=== PATIENT | male | born 1970 | race Asian ===

== ENCOUNTER 2016-07-31 08:22 | Outpatient (CLI) | payer BC ==
[~2016-07-31 08:22] MED LIST: ALLO100T PO; AMLO5TAB2 PO; ATOR10TA PO; GABA-532 PO; GLIM2TAB2 PO; LOSA50TA21 PO; METF500T4 PO
== END 2016-07-31 23:59 | disposition home or self-care (01) ==
LOC: RAD 08:22
PROVIDERS: ATTEND Family Medicine
DX: M25.541 Pain in joints of right hand (principal); M25.542 Pain in joints of left hand
CPT/HCPCS: 73130-TC

== ENCOUNTER 2016-08-15 06:33 | Outpatient (CLI) | payer BC ==
[2016-08-15 07:43] LABS: BASOPHILS # (AUTO) 0.1 /CMM (0.0-0.2); BASOPHILS % (AUTO) 0.6 % (0.0-2.0); EOSINOPHILS # (AUTO) 0.5 /CMM (0.0-0.7); EOSINOPHILS % (AUTO) 3.7 % (0.0-6.0); HEMATOCRIT 41 % (39-51); HEMOGLOBIN 13.6 g/dL (13.5-17.5); LYMPHOCYTES # (AUTO) 4.3 /CMM (0.8-4.8); LYMPHOCYTES % (AUTO) 34.9 % (20.0-44.0); MEAN CORPUSCULAR HEMOGLOBIN 30 PG (26.0-33.0); MEAN CORPUSCULAR HGB CONC 33 g/dl (31.0-36.0); MEAN CORPUSCULAR VOLUME 91 fL (80-96); MONOCYTES # (AUTO) 0.7 /CMM (0.1-1.30); MONOCYTES % (AUTO) 5.5 % (2.0-12.0); NEUTROPHILS # (AUTO) 6.8 /CMM (1.8-8.9); NEUTROPHILS % (AUTO) 55.3 % (43.0-81.0); PLATELET COUNT (AUTO) 376 /CMM (150-450); RDW COEFFICIENT OF VARIATION 13.4 (11.5-15.0); RED BLOOD CELL COUNT(AUTO) 4.52 MIL/uL (4.5-6.0); WHITE BLOOD COUNT (AUTO) 12.3 K/uL (4.3-11.0)
[2016-08-15 07:53] LABS: APPEARANCE,URINE CLEAR (CLEAR); BILIRUBIN,URINE NEGATIVE (NEGATIVE); BLOOD, URINE NEGATIVE Ery/uL (NEGATIVE); COLOR,URINE YELLOW (YELLOW); KETONES,URINE NEGATIVE (NEGATIVE); LEUKOCYTE ESTERASE ,URINE NEGATIVE (NEGATIVE); NITRITE, URINE NEGATIVE (NEGATIVE); PROTEIN,URINE TRACE mg/dl (NEGATIVE); UGLUCOSE NEGATIVE (NEGATIVE); UROBILINOGEN,URINE 0.2 EU/dL (0.2)
[2016-08-15 07:58] LABS: ALBUMIN 4.2 g/dL (3.4-5.0); BILIRUBIN,TOTAL 0.4 mg/dL (0.2-1.0); CALCIUM, SERUM 8.7 mg/dL (8.5-10.1); CREATININE 1.7 mg/dL (0.6-1.3); POTASSIUM 4.3 mmol/L (3.5-5.1); TOTAL PROTEIN, SERUM 7.9 g/dL (6.4-8.2)
[2016-08-15 08:05] LABS: THYROID STIMULATING HORMONE 1.015 uIU/mL (0.358-3.74); URIC ACID 6.6 mg/dL (2.6-7.2)
[2016-08-15 09:15] LABS: ADD URINE CULTURE NO; BACTERIA,URINE None seen /HPF (None Seen); RBC,URINE NONE SEEN /HPF (0-2); SQUAMOUS EPITHELIAL CELL,UR Few /HPF (None Seen); WBC,URINE 0-2 /HPF (0-3)
[2016-08-16 08:09] LABS: T3 TOTAL 152 ng/dL (71-180)
[2016-08-16 20:08] LABS: *ANA ANTI-CENTROMERE B AB <0.2 AI (0.0-0.9); *ANA ANTI-DNA(DS) AB, QN 1 IU/mL (0-9); *ANA ANTI-JO-1 <0.2 AI (0.0-0.9); *ANA ANTICHROMATIN ANTIBODY <0.2 AI (0.0-0.9); *ANA RNP ANTIBODIES <0.2 AI (0.0-0.9); *ANA SJOGREN'S ANTI-SS-A <0.2 AI (0.0-0.9); *ANA SJOGREN'S ANTI-SS-B <0.2 AI (0.0-0.9); *ANAANTI-SCLERODERMA-70 AB <0.2 AI (0.0-0.9); *ANASMITH AB <0.2 AI (0.0-0.9)
== END 2016-08-15 23:59 | disposition home or self-care (01) ==
LOC: LAB 06:33
PROVIDERS: ATTEND Family Medicine
DX: E11.9 Type 2 diabetes mellitus without complications (principal); M25.549 Pain in joints of unspecified hand
CPT/HCPCS: 36415; 80053-TC; 80061-TC; 81000-TC; 84439-TC; 84443-TC; 84480; 84550-TC; 85025-TC; 86225; 86235; 86431-TC

== ENCOUNTER 2016-12-18 06:32 | Outpatient (CLI) | payer BC ==
[2016-12-19 04:08] LABS: BASOPHILS # (AUTO) 0.1 /CMM (0.0-0.2); EOSINOPHILS # (AUTO) 0.4 /CMM (0.0-0.7); EOSINOPHILS % (AUTO) 3.7 % (0.0-6.0); HEMATOCRIT 42 % (39-51); HEMOGLOBIN 13.9 g/dL (13.5-17.5); LYMPHOCYTES # (AUTO) 3.1 /CMM (0.8-4.8); LYMPHOCYTES % (AUTO) 30.5 % (20.0-44.0); MEAN CORPUSCULAR HEMOGLOBIN 30 PG (26.0-33.0); MEAN CORPUSCULAR HGB CONC 34 g/dl (31.0-36.0); MEAN CORPUSCULAR VOLUME 91 fL (80-96); MONOCYTES # (AUTO) 0.5 /CMM (0.1-1.30); MONOCYTES % (AUTO) 5.2 % (2.0-12.0); NEUTROPHILS # (AUTO) 6.1 /CMM (1.8-8.9); NEUTROPHILS % (AUTO) 59.6 % (43.0-81.0); PLATELET COUNT (AUTO) 360 /CMM (150-450); RDW COEFFICIENT OF VARIATION 13.3 (11.5-15.0); RED BLOOD CELL COUNT(AUTO) 4.59 MIL/uL (4.5-6.0); WHITE BLOOD COUNT (AUTO) 10.3 K/uL (4.3-11.0)
[2016-12-19 04:35] LABS: ALBUMIN 4.2 g/dL (3.4-5.0); BILIRUBIN,TOTAL 0.3 mg/dL (0.2-1.0); CALCIUM, SERUM 8.9 mg/dL (8.5-10.1); CREATININE 1.8 mg/dL (0.6-1.3); POTASSIUM 4.9 mmol/L (3.5-5.1); TOTAL PROTEIN, SERUM 8.1 g/dL (6.4-8.2)
[2016-12-19 04:43] LABS: THYROID STIMULATING HORMONE 0.797 uIU/mL (0.358-3.74)
[2016-12-20 08:11] LABS: T3, FREE 3.6 pg/mL (2.0-4.4)
== END 2016-12-18 23:59 | disposition home or self-care (01) ==
LOC: LAB 06:32
PROVIDERS: ATTEND Family Medicine
DX: E11.21 Type 2 diabetes mellitus with diabetic nephropathy (principal); E55.9 Vitamin D deficiency, unspecified; M79.643 Pain in unspecified hand
CPT/HCPCS: 36415; 80053-TC; 80061-TC; 82306; 83540-TC; 84436-TC; 84439-TC; 84443-TC; 84481; 85025-TC; 86431-TC

== ENCOUNTER 2017-01-29 08:21 | Outpatient (CLI) | payer BC | END 2017-01-29 23:59 | disposition home or self-care (01) | LOC: CT 08:21 | PROVIDERS: ATTEND Family Medicine | DX: C64.9 Malignant neoplasm of unspecified kidney, except renal pelvis (principal); K80.20 Calculus of gallbladder without cholecystitis without obstruction; R16.0 Hepatomegaly, not elsewhere classified; I70.0 Atherosclerosis of aorta; Z90.5 Acquired absence of kidney | CPT/HCPCS: 71250-TC ==

== ENCOUNTER 2017-02-05 06:35 | Outpatient (CLI) | payer BC ==
[2017-02-06 02:04] LABS: BASOPHILS # (AUTO) 0.1 /CMM (0.0-0.2); BASOPHILS % (AUTO) 1.1 % (0.0-2.0); EOSINOPHILS # (AUTO) 0.4 /CMM (0.0-0.7); EOSINOPHILS % (AUTO) 4.1 % (0.0-6.0); HEMATOCRIT 39 % (39-51); LYMPHOCYTES # (AUTO) 3.2 /CMM (0.8-4.8); LYMPHOCYTES % (AUTO) 35.2 % (20.0-44.0); MEAN CORPUSCULAR HEMOGLOBIN 30 PG (26.0-33.0); MEAN CORPUSCULAR HGB CONC 34 g/dl (31.0-36.0); MEAN CORPUSCULAR VOLUME 90 fL (80-96); MONOCYTES # (AUTO) 0.7 /CMM (0.1-1.30); MONOCYTES % (AUTO) 7.8 % (2.0-12.0); NEUTROPHILS # (AUTO) 4.7 /CMM (1.8-8.9); NEUTROPHILS % (AUTO) 51.8 % (43.0-81.0); PLATELET COUNT (AUTO) 348 /CMM (150-450); RDW COEFFICIENT OF VARIATION 13.6 (11.5-15.0); RED BLOOD CELL COUNT(AUTO) 4.29 MIL/uL (4.5-6.0); WHITE BLOOD COUNT (AUTO) 9.1 K/uL (4.3-11.0)
[2017-02-06 02:07] LABS: APPEARANCE,URINE CLEAR (CLEAR); BILIRUBIN,URINE NEGATIVE (NEGATIVE); BLOOD, URINE TRACE-INTA Ery/uL (NEGATIVE); KETONES,URINE NEGATIVE (NEGATIVE); LEUKOCYTE ESTERASE ,URINE NEGATIVE (NEGATIVE); NITRITE, URINE NEGATIVE (NEGATIVE); PROTEIN,URINE 2+ mg/dl (NEGATIVE); UGLUCOSE NEGATIVE (NEGATIVE); UROBILINOGEN,URINE 0.2 EU/dL (0.2)
[2017-02-06 02:13] LABS: COLOR,URINE Light yellow (YELLOW); RBC,URINE 0-2 /HPF (0-2); WBC,URINE NONE SEEN /HPF (0-3)
[2017-02-06 02:14] LABS: BACTERIA,URINE None seen /HPF (None Seen); SQUAMOUS EPITHELIAL CELL,UR Rare /HPF (None Seen)
[2017-02-06 02:17] LABS: ALBUMIN 3.8 g/dL (3.4-5.0); BILIRUBIN,TOTAL 0.3 mg/dL (0.2-1.0); CREATININE 1.8 mg/dL (0.6-1.3); POTASSIUM 4.3 mmol/L (3.5-5.1); TOTAL PROTEIN, SERUM 7.7 g/dL (6.4-8.2)
== END 2017-02-05 23:59 | disposition home or self-care (01) ==
LOC: LAB 06:35
PROVIDERS: ATTEND Family Medicine
DX: C64.9 Malignant neoplasm of unspecified kidney, except renal pelvis (principal); N35.9 Urethral stricture, unspecified; R82.99 Other abnormal findings in urine
CPT/HCPCS: 36415; 80053-TC; 81000-TC; 85025-TC; 87086-TC

== ENCOUNTER 2017-04-23 07:21 | Outpatient (CLI) | payer BC ==
[2017-04-24 06:31] LABS: BASOPHILS # (AUTO) 0.1 /CMM (0.0-0.2); BASOPHILS % (AUTO) 0.7 % (0.0-2.0); EOSINOPHILS # (AUTO) 0.4 /CMM (0.0-0.7); EOSINOPHILS % (AUTO) 4.1 % (0.0-6.0); HEMATOCRIT 39 % (39-51); LYMPHOCYTES # (AUTO) 2.9 /CMM (0.8-4.8); LYMPHOCYTES % (AUTO) 30.1 % (20.0-44.0); MEAN CORPUSCULAR HEMOGLOBIN 30 PG (26.0-33.0); MEAN CORPUSCULAR HGB CONC 34 g/dl (31.0-36.0); MEAN CORPUSCULAR VOLUME 89 fL (80-96); MONOCYTES # (AUTO) 0.7 /CMM (0.1-1.30); MONOCYTES % (AUTO) 6.8 % (2.0-12.0); NEUTROPHILS # (AUTO) 5.7 /CMM (1.8-8.9); NEUTROPHILS % (AUTO) 58.3 % (43.0-81.0); PLATELET COUNT (AUTO) 408 /CMM (150-450); RDW COEFFICIENT OF VARIATION 13.1 (11.5-15.0); RED BLOOD CELL COUNT(AUTO) 4.31 MIL/uL (4.5-6.0); WHITE BLOOD COUNT (AUTO) 9.7 K/uL (4.3-11.0)
[2017-04-24 06:32] LABS: APPEARANCE,URINE CLEAR (CLEAR); BILIRUBIN,URINE NEGATIVE (NEGATIVE); BLOOD, URINE TRACE Ery/uL (NEGATIVE); COLOR,URINE YELLOW (YELLOW); KETONES,URINE NEGATIVE (NEGATIVE); LEUKOCYTE ESTERASE ,URINE NEGATIVE (NEGATIVE); NITRITE, URINE NEGATIVE (NEGATIVE); PH,URINE 5.5 (5.0-8.0); PROTEIN,URINE 2+ mg/dl (NEGATIVE); UGLUCOSE NEGATIVE (NEGATIVE); UROBILINOGEN,URINE 0.2 EU/dL (0.2)
[2017-04-24 06:43] LABS: BACTERIA,URINE None seen /HPF (None Seen); HYALINE CASTS, URINE Rare /LPF (None Seen); MUCUS,URINE Rare /LPF (None Seen); RBC,URINE 0-2 /HPF (0-2); SQUAMOUS EPITHELIAL CELL,UR Rare /HPF (None Seen); WBC,URINE 0-2 /HPF (0-3)
[2017-04-24 06:50] LABS: ALBUMIN 3.9 g/dL (3.4-5.0); BILIRUBIN,TOTAL 0.4 mg/dL (0.2-1.0); CALCIUM, SERUM 8.9 mg/dL (8.5-10.1); CREATININE 1.8 mg/dL (0.6-1.3); POTASSIUM 4.6 mmol/L (3.5-5.1); TOTAL PROTEIN, SERUM 8.1 g/dL (6.4-8.2)
[2017-04-24 06:59] LABS: FREE T4 (FREE THYROXINE) 0.93 ng/dL (0.76-1.46); PROSTATE SPECIFIC ANTIGEN SCR 1.44 ng/mL (0.00-4.00); THYROID STIMULATING HORMONE 1.719 uIU/mL (0.358-3.74)
== END 2017-04-23 23:59 | disposition home or self-care (01) ==
LOC: LAB 07:21
PROVIDERS: ATTEND Family Medicine
DX: Z11.59 Encounter for screening for other viral diseases (principal); E11.22 Type 2 diabetes mellitus with diabetic chronic kidney disease; N18.9 Chronic kidney disease, unspecified; E55.9 Vitamin D deficiency, unspecified; R31.21 Asymptomatic microscopic hematuria
CPT/HCPCS: 36415; 80053-TC; 80061-TC; 81000-TC; 82306; 84153-TC; 84439-TC; 84443-TC; 85025-TC; 86706; 86709-TC

== ENCOUNTER 2017-05-28 05:57 | Outpatient (CLI) | payer BC | END 2017-05-28 23:59 | disposition home or self-care (01) | LOC: CT 05:57 | PROVIDERS: ATTEND Family Medicine | DX: K80.20 Calculus of gallbladder without cholecystitis without obstruction (principal); K76.0 Fatty (change of) liver, not elsewhere classified; C64.1 Malignant neoplasm of right kidney, except renal pelvis; J98.11 Atelectasis; I70.0 Atherosclerosis of aorta; M47.899 Other spondylosis, site unspecified; Z90.5 Acquired absence of kidney ==

== ENCOUNTER 2017-06-12 06:18 | Outpatient (CLI) | payer BC ==
[2017-06-13 02:49] LABS: BASOPHILS # (AUTO) 0.1 /CMM (0.0-0.2); BASOPHILS % (AUTO) 0.8 % (0.0-2.0); EOSINOPHILS # (AUTO) 0.4 /CMM (0.0-0.7); EOSINOPHILS % (AUTO) 4.3 % (0.0-6.0); HEMATOCRIT 36 % (39-51); HEMOGLOBIN 12.4 g/dL (13.5-17.5); LYMPHOCYTES # (AUTO) 2.8 /CMM (0.8-4.8); LYMPHOCYTES % (AUTO) 28.2 % (20.0-44.0); MEAN CORPUSCULAR HEMOGLOBIN 31 PG (26.0-33.0); MEAN CORPUSCULAR HGB CONC 34 g/dl (31.0-36.0); MEAN CORPUSCULAR VOLUME 90 fL (80-96); MONOCYTES # (AUTO) 0.7 /CMM (0.1-1.30); MONOCYTES % (AUTO) 6.8 % (2.0-12.0); NEUTROPHILS # (AUTO) 5.9 /CMM (1.8-8.9); NEUTROPHILS % (AUTO) 59.9 % (43.0-81.0); PLATELET COUNT (AUTO) 368 /CMM (150-450); RED BLOOD CELL COUNT(AUTO) 4.04 MIL/uL (4.5-6.0); WHITE BLOOD COUNT (AUTO) 9.9 K/uL (4.3-11.0)
[2017-06-13 03:09] LABS: TOTAL IRON BINDING CAPACITY 387 ug/dl (250-450)
[2017-06-13 03:17] LABS: FERRITIN 140 ng/mL (8-388)
== END 2017-06-12 23:59 | disposition home or self-care (01) ==
LOC: LAB 06:18
PROVIDERS: ATTEND Family Medicine
DX: D64.9 Anemia, unspecified (principal)
CPT/HCPCS: 36415; 82272-TC; 82728-TC; 82746; 83550-TC; 85025-TC

== ENCOUNTER 2017-09-03 06:33 | Outpatient (CLI) | payer BC ==
[~2017-09-03 06:33] MED LIST changes: -AMLO5TAB2 PO; +AMLO5TAB7 PO; +METF-440 PO; -METF500T4 PO
[2017-09-03 07:15] LABS: BASOPHILS # (AUTO) 0.1 /CMM (0.0-0.2); BASOPHILS % (AUTO) 0.7 % (0.0-2.0); EOSINOPHILS % (AUTO) 3.5 % (0.0-6.0); HEMATOCRIT 41 % (39-51); HEMOGLOBIN 13.7 g/dL (13.5-17.5); LYMPHOCYTES # (AUTO) 3.2 /CMM (0.8-4.8); LYMPHOCYTES % (AUTO) 28.3 % (20.0-44.0); MEAN CORPUSCULAR HGB CONC 34 g/dl (31.0-36.0); MEAN CORPUSCULAR VOLUME 89 fL (80-96); MONOCYTES # (AUTO) 0.6 /CMM (0.1-1.30); MONOCYTES % (AUTO) 5.5 % (2.0-12.0); PLATELET COUNT (AUTO) 419 /CMM (150-450); RDW COEFFICIENT OF VARIATION 13.6 (11.5-15.0); WHITE BLOOD COUNT (AUTO) 11.3 K/uL (4.3-11.0)
[2017-09-03 07:20] LABS: APPEARANCE,URINE CLEAR (CLEAR); BILIRUBIN,URINE NEGATIVE (NEGATIVE); BLOOD, URINE NEGATIVE Ery/uL (NEGATIVE); COLOR,URINE YELLOW (YELLOW); KETONES,URINE NEGATIVE (NEGATIVE); LEUKOCYTE ESTERASE ,URINE NEGATIVE (NEGATIVE); NITRITE, URINE NEGATIVE (NEGATIVE); PROTEIN,URINE 2+ mg/dl (NEGATIVE); UGLUCOSE NEGATIVE (NEGATIVE); UROBILINOGEN,URINE 0.2 EU/dL (0.2)
[2017-09-03 07:25] LABS: ALBUMIN 3.9 g/dL (3.4-5.0); BILIRUBIN,TOTAL 0.4 mg/dL (0.2-1.0); CALCIUM, SERUM 9.2 mg/dL (8.5-10.1); POTASSIUM 4.4 mmol/L (3.5-5.1); TOTAL PROTEIN, SERUM 8.2 g/dL (6.4-8.2)
[2017-09-03 07:33] LABS: THYROID STIMULATING HORMONE 1.496 uIU/mL (0.358-3.74); URIC ACID 8.1 mg/dL (2.6-7.2)
[2017-09-03 07:43] LABS: BACTERIA,URINE Rare /HPF (None Seen); RBC,URINE 0-2 /HPF (0-2); SQUAMOUS EPITHELIAL CELL,UR Rare /HPF (None Seen); WBC,URINE 0-2 /HPF (0-3)
== END 2017-09-03 23:59 | disposition home or self-care (01) ==
LOC: LAB 06:33
PROVIDERS: ATTEND Family Medicine
DX: E11.9 Type 2 diabetes mellitus without complications (principal); M10.9 Gout, unspecified
CPT/HCPCS: 36415; 80053-TC; 80061-TC; 81000-TC; 84439-TC; 84443-TC; 84550-TC; 85025-TC

== ENCOUNTER 2017-12-24 06:43 | Outpatient (CLI) | payer BC ==
[~2017-12-24 06:43] MED LIST changes: +AMLO5TAB2 PO; -AMLO5TAB7 PO; -METF-440 PO; +METF500T6 PO
[2017-12-25 02:47] LABS: APPEARANCE,URINE CLEAR (CLEAR); BILIRUBIN,URINE NEGATIVE (NEGATIVE); BLOOD, URINE TRACE-INTA Ery/uL (NEGATIVE); COLOR,URINE YELLOW (YELLOW); KETONES,URINE NEGATIVE (NEGATIVE); LEUKOCYTE ESTERASE ,URINE NEGATIVE (NEGATIVE); NITRITE, URINE NEGATIVE (NEGATIVE); PROTEIN,URINE 2+ mg/dl (NEGATIVE); UGLUCOSE NEGATIVE (NEGATIVE); UROBILINOGEN,URINE 0.2 EU/dL (0.2)
[2017-12-25 03:19] LABS: RBC,URINE 0-2 /HPF (0-2); WBC,URINE 0-2 /HPF (0-3)
[2017-12-25 03:20] LABS: BACTERIA,URINE Rare /HPF (None Seen); SQUAMOUS EPITHELIAL CELL,UR Rare /HPF (None Seen)
[2017-12-25 05:45] LABS: ALBUMIN 3.8 g/dL (3.4-5.0); BILIRUBIN,TOTAL 0.3 mg/dL (0.2-1.0); CALCIUM, SERUM 9.1 mg/dL (8.5-10.1); POTASSIUM 4.4 mmol/L (3.5-5.1); TOTAL PROTEIN, SERUM 7.9 g/dL (6.4-8.2)
[2017-12-25 05:49] LABS: BASOPHILS % (AUTO) 0.2 % (0.0-2.0); EOSINOPHILS % (AUTO) 4.7 % (0.0-6.0); HEMATOCRIT 43 % (39-51); HEMOGLOBIN 14.2 g/dL (13.5-17.5); LYMPHOCYTES # (AUTO) 2.3 /CMM (0.8-4.8); MEAN CORPUSCULAR HEMOGLOBIN 30 PG (26.0-33.0); MEAN CORPUSCULAR HGB CONC 34 g/dl (31.0-36.0); MEAN CORPUSCULAR VOLUME 89 fL (80-96); MONOCYTES # (AUTO) 0.7 /CMM (0.1-1.30); MONOCYTES % (AUTO) 7.8 % (2.0-12.0); NEUTROPHILS % (AUTO) 59.3 % (43.0-81.0); PLATELET COUNT (AUTO) 418 /CMM (150-450); RDW COEFFICIENT OF VARIATION 12.5 (11.5-15.0); WHITE BLOOD COUNT (AUTO) 8.4 K/uL (4.3-11.0)
[2017-12-25 05:51] LABS: FREE T4 (FREE THYROXINE) 0.99 ng/dL (0.76-1.46); THYROID STIMULATING HORMONE 2.394 uIU/mL (0.358-3.74); URIC ACID 7.9 mg/dL (2.6-7.2)
== END 2017-12-24 23:59 | disposition home or self-care (01) ==
LOC: LAB 06:43
PROVIDERS: ATTEND Family Medicine
DX: I10 Essential (primary) hypertension (principal); E11.9 Type 2 diabetes mellitus without complications; E55.9 Vitamin D deficiency, unspecified
CPT/HCPCS: 36415; 80053-TC; 80061-TC; 81000-TC; 82306; 84439-TC; 84443-TC; 84550-TC; 85025-TC

== ENCOUNTER 2017-12-25 08:39 | Outpatient (CLI) | payer BC | END 2017-12-25 23:59 | disposition home or self-care (01) | LOC: CT 08:39 | PROVIDERS: ATTEND Family Medicine | DX: C64.1 Malignant neoplasm of right kidney, except renal pelvis (principal); I10 Essential (primary) hypertension; E11.9 Type 2 diabetes mellitus without complications; J45.909 Unspecified asthma, uncomplicated; Z90.5 Acquired absence of kidney | CPT/HCPCS: 71250-TC ==

== ENCOUNTER 2018-01-02 07:48 | Outpatient (CLI) | payer BC | END 2018-01-02 23:59 | disposition home or self-care (01) | LOC: MRI 07:48 | PROVIDERS: ATTEND Family Medicine | DX: M48.07 Spinal stenosis, lumbosacral region (principal); C64.9 Malignant neoplasm of unspecified kidney, except renal pelvis; I10 Essential (primary) hypertension; J45.909 Unspecified asthma, uncomplicated; E11.9 Type 2 diabetes mellitus without complications | CPT/HCPCS: 72148-TC ==

== ENCOUNTER 2018-01-15 20:42 | Emergency (ER) | payer BC, OTHER ==
[~2018-01-15] VITALS: Ht 177.8 cm; Wt 113.4 kg
[~2018-01-15 20:42] MED LIST changes: -AMLO5TAB2 PO; +AMLO5TAB7 PO; +METF-440 PO; -METF500T6 PO
[2018-01-15 20:46] VITALS: BP 156/86
== END 2018-01-15 21:12 | disposition home or self-care (01) ==
LOC: ER 20:46
DX: B34.9 Viral infection, unspecified (principal); I10 Essential (primary) hypertension; E11.9 Type 2 diabetes mellitus without complications; E78.00 Pure hypercholesterolemia, unspecified; Z85.528 Personal history of other malignant neoplasm of kidney; Z91.013 Allergy to seafood; Z90.5 Acquired absence of kidney; Z79.84 Long term (current) use of oral hypoglycemic drugs; Z79.899 Other long term (current) drug therapy
CPT/HCPCS: A4606; Z7610

== ENCOUNTER 2018-10-26 22:45 | Emergency (ER) | payer BC, OTHER ==
[~2018-10-26] VITALS: Ht 180.3 cm; Wt 116.6 kg
[2018-10-26 22:45] VITALS: BP 165/92
[~2018-10-26 22:45] MED LIST changes: -AMLO5TAB7 PO; +AMLO5TAB9 PO; -LOSA50TA21 PO; +LOSA50TA39 PO
[2018-10-26] MEDS ORDERED: ACETAMINOPHEN 325 MG TABLET ONE (23:44)
[2018-10-27] MEDS ORDERED: ACETAMINOPHEN 650 MG/20.3 ML UDC PO ONE
== END 2018-10-27 00:13 | disposition home or self-care (01) ==
LOC: ER 22:47
DX: S20.212A Contusion of left front wall of thorax, initial encounter (principal); I10 Essential (primary) hypertension; E11.9 Type 2 diabetes mellitus without complications; Z98.890 Other specified postprocedural states; Z79.84 Long term (current) use of oral hypoglycemic drugs; Z79.899 Other long term (current) drug therapy; Z91.013 Allergy to seafood; Z85.528 Personal history of other malignant neoplasm of kidney; W01.198A Fall on same level from slipping, tripping and stumbling with subsequent striking against other object, initial encounter; Y93.01 Activity, walking, marching and hiking; Y92.89 Other specified places as the place of occurrence of the external cause; Y99.8 Other external cause status
CPT/HCPCS: 71100-TC

== ENCOUNTER 2018-12-30 08:24 | Outpatient (CLI) | payer BC | END 2018-12-30 23:59 | disposition home or self-care (01) | LOC: CT 08:24 | PROVIDERS: ATTEND Family Medicine | DX: C64.9 Malignant neoplasm of unspecified kidney, except renal pelvis (principal); K76.0 Fatty (change of) liver, not elsewhere classified; K80.20 Calculus of gallbladder without cholecystitis without obstruction; I70.0 Atherosclerosis of aorta; M47.815 Spondylosis without myelopathy or radiculopathy, thoracolumbar region; M95.4 Acquired deformity of chest and rib; I10 Essential (primary) hypertension; E11.9 Type 2 diabetes mellitus without complications; J45.909 Unspecified asthma, uncomplicated; Z90.5 Acquired absence of kidney | CPT/HCPCS: 71250-TC ==

== ENCOUNTER 2019-01-13 08:37 | Outpatient (CLI) | payer BC ==
[2019-01-13 09:22] LABS: BASOPHILS # (AUTO) 0.1 /CMM (0.0-0.2); BASOPHILS % (AUTO) 1.1 % (0.0-2.0); HEMATOCRIT 43 % (39-51); HEMOGLOBIN 14.2 g/dL (13.5-17.5); LYMPHOCYTES # (AUTO) 2.5 /CMM (0.8-4.8); LYMPHOCYTES % (AUTO) 27.2 % (20.0-44.0); MEAN CORPUSCULAR HGB CONC 33 g/dl (31.0-36.0); MEAN CORPUSCULAR VOLUME 92 fL (80-96); MONOCYTES # (AUTO) 0.5 /CMM (0.1-1.30); MONOCYTES % (AUTO) 5.7 % (2.0-12.0); NEUTROPHILS # (AUTO) 5.7 /CMM (1.8-8.9); PLATELET COUNT (AUTO) 363 /CMM (150-450); RED BLOOD CELL COUNT(AUTO) 4.61 MIL/uL (4.5-6.0); WHITE BLOOD COUNT (AUTO) 9.3 K/uL (4.3-11.0)
[2019-01-13 09:26] LABS: ALBUMIN 3.7 g/dL (3.4-5.0); BILIRUBIN,TOTAL 0.3 mg/dL (0.2-1.0); CREATININE 2.1 mg/dL (0.6-1.3); POTASSIUM 4.8 mmol/L (3.5-5.1); TOTAL PROTEIN, SERUM 7.8 g/dL (6.4-8.2)
[2019-01-13 23:08] LABS: APPEARANCE,URINE CLEAR (CLEAR); BILIRUBIN,URINE NEGATIVE (NEGATIVE); BLOOD, URINE NEGATIVE Ery/uL (NEGATIVE); COLOR,URINE OTHER (YELLOW); KETONES,URINE NEGATIVE (NEGATIVE); LEUKOCYTE ESTERASE ,URINE NEGATIVE (NEGATIVE); NITRITE, URINE NEGATIVE (NEGATIVE); PROTEIN,URINE 2+ mg/dl (NEGATIVE); UGLUCOSE NEGATIVE (NEGATIVE); UROBILINOGEN,URINE 0.2 EU/dL (0.2)
[2019-01-13 23:44] LABS: BACTERIA,URINE Few /HPF (None Seen); RBC,URINE 0-2 /HPF (0-2); SQUAMOUS EPITHELIAL CELL,UR Rare /HPF (None Seen); WBC,URINE 0-2 /HPF (0-3)
[2019-01-15 06:09] LABS: *IFE A/G RATIO 1.1 (0.7-1.7); *IFE ALBUMIN 3.5 g/dL (2.9-4.4); *IFE ALPHA-2-GLOBULIN 1.1 g/dL (0.4-1.0); *IFE M-SPIKE Not Observed g/dL (Not Observed); *IFEALPHA-1-GLOBULIN 0.3 g/dL (0.0-0.4); IMMUNOGLOBULIN A, SERUM 194 mg/dL (90-386); IMMUNOGLOBULIN G, SERUM 1204 mg/dL (700-1600); IMMUNOGLOBULIN M, SERUM 84 mg/dL (20-172)
== END 2019-01-13 23:59 | disposition home or self-care (01) ==
LOC: LAB 08:37
PROVIDERS: ATTEND Family Medicine
DX: C64.9 Malignant neoplasm of unspecified kidney, except renal pelvis (principal)
CPT/HCPCS: 36415; 80053-TC; 81000-TC; 82784; 84155; 84165; 85025-TC; 86334

== ENCOUNTER 2019-02-03 09:57 | Outpatient (CLI) | payer BC ==
[~2019-02-03 09:57] MED LIST changes: -GLIM2TAB2 PO; +GLIM2TAB3 PO
== END 2019-02-03 23:59 | disposition home or self-care (01) ==
LOC: MRI 09:57
PROVIDERS: ATTEND Family Medicine
DX: M48.56XA Collapsed vertebra, not elsewhere classified, lumbar region, initial encounter for fracture (principal); M48.07 Spinal stenosis, lumbosacral region; M51.27 Other intervertebral disc displacement, lumbosacral region; M12.88 Other specific arthropathies, not elsewhere classified, other specified site; I10 Essential (primary) hypertension; J45.909 Unspecified asthma, uncomplicated; E11.9 Type 2 diabetes mellitus without complications
CPT/HCPCS: 72148-TC

== ENCOUNTER 2019-02-24 07:21 | Outpatient (CLI) | payer BC ==
[~2019-02-24 07:21] MED LIST changes: +GLIM2TAB2 PO; -GLIM2TAB3 PO
== END 2019-02-24 23:59 | disposition home or self-care (01) ==
LOC: MRI 07:21
PROVIDERS: ATTEND Family Medicine
DX: M48.54XA Collapsed vertebra, not elsewhere classified, thoracic region, initial encounter for fracture (principal); M54.5 Low back pain
CPT/HCPCS: 72146-TC

== ENCOUNTER 2019-04-01 10:05 | Outpatient (CLI) | payer BC ==
[~2019-04-01 10:05] MED LIST changes: -GLIM2TAB2 PO; +GLIM2TAB3 PO
[2019-04-02 05:57] LABS: BASOPHILS # (AUTO) 0.2 /CMM (0.0-0.2); BASOPHILS % (AUTO) 1.8 % (0.0-2.0); EOSINOPHILS % (AUTO) 4.3 % (0.0-6.0); HEMATOCRIT 40 % (39-51); HEMOGLOBIN 13.7 g/dL (13.5-17.5); LYMPHOCYTES # (AUTO) 2.8 /CMM (0.8-4.8); MEAN CORPUSCULAR HGB CONC 34 g/dl (31.0-36.0); MEAN CORPUSCULAR VOLUME 92 fL (80-96); MONOCYTES # (AUTO) 0.7 /CMM (0.1-1.30); MONOCYTES % (AUTO) 6.5 % (2.0-12.0); NEUTROPHILS # (AUTO) 5.9 /CMM (1.8-8.9); NEUTROPHILS % (AUTO) 59.4 % (43.0-81.0); PLATELET COUNT (AUTO) 333 /CMM (150-450); RED BLOOD CELL COUNT(AUTO) 4.34 MIL/uL (4.5-6.0)
[2019-04-02 07:48] LABS: ALBUMIN 3.4 g/dL (3.4-5.0); BILIRUBIN,TOTAL 0.2 mg/dL (0.2-1.0); CALCIUM, SERUM 8.5 mg/dL (8.5-10.1); CREATININE 2.2 mg/dL (0.6-1.3); POTASSIUM 4.2 mmol/L (3.5-5.1); TOTAL PROTEIN, SERUM 7.2 g/dL (6.4-8.2)
[2019-04-04 17:07] LABS: BETA-2 MICROGLOBULIN, SERUM 3.1 mg/L (0.6-2.4)
[2019-04-06 08:06] LABS: *IFE ALBUMIN 3.3 g/dL (2.9-4.4); *IFE ALPHA-2-GLOBULIN 1.1 g/dL (0.4-1.0); *IFE BETA GLOBULIN 1.1 g/dL (0.7-1.3); *IFE GAMMA GLOBULIN 1.1 g/dL (0.4-1.8); *IFE M-SPIKE Not Observed g/dL (Not Observed); *IFEALPHA-1-GLOBULIN 0.2 g/dL (0.0-0.4); IMMUNOGLOBULIN A, SERUM 186 mg/dL (90-386); IMMUNOGLOBULIN G, SERUM 1129 mg/dL (700-1600); IMMUNOGLOBULIN M, SERUM 83 mg/dL (20-172)
[2019-04-06 09:06] LABS: *IFEU ALPHA-2-GLOBULIN 3.2 % (.)
== END 2019-04-01 23:59 | disposition home or self-care (01) ==
LOC: LAB 10:05
PROVIDERS: ATTEND Internal Medicine Hematology & Oncology
DX: C64.9 Malignant neoplasm of unspecified kidney, except renal pelvis (principal)
CPT/HCPCS: 36415; 80053-TC; 82232; 82784; 84155; 84156; 84165; 84166; 85025-TC; 86334; 86335

== ENCOUNTER 2019-08-05 17:01 | Emergency (ER) | payer BC, OTHER ==
[~2019-08-05] VITALS: Ht 180.3 cm; Wt 113.4 kg
[~2019-08-05 17:01] MED LIST changes: -GLIM2TAB3 PO; +GLIM2TAB31 PO
[2019-08-05 17:21] VITALS: BP 178/99
--- NOTE | 2019-08-05 17:30 | NUR ---
while awaiting md vasquez. pt now endorsing pressure like chest pain, sob x 3 days. alisia torres aware.
--- NOTE | 2019-08-05 17:47 | NUR ---
radiology at bedside for chest xray.
--- NOTE | 2019-08-05 18:32 | NUR ---
Patient discharged to home in stable condition. Written and verbal after care instructions given. Patient verbalizes understanding of instruction.
== END 2019-08-05 18:33 | disposition home or self-care (01) ==
LOC: ER 17:04
DX: R50.9 Fever, unspecified (principal); R51 Headache; R19.7 Diarrhea, unspecified; Z20.828 Contact with and (suspected) exposure to other viral communicable diseases; I10 Essential (primary) hypertension; E11.9 Type 2 diabetes mellitus without complications; Z85.528 Personal history of other malignant neoplasm of kidney; Z98.890 Other specified postprocedural states; Z91.013 Allergy to seafood; Z79.899 Other long term (current) drug therapy; Z79.84 Long term (current) use of oral hypoglycemic drugs
CPT/HCPCS: 71045-TC

== ENCOUNTER 2019-08-19 07:11 | Outpatient (CLI) | payer BC ==
[2019-08-20 05:17] LABS: BASOPHILS # (AUTO) 0.1 /CMM (0.0-0.2); BASOPHILS % (AUTO) 0.9 % (0.0-2.0); EOSINOPHILS % (AUTO) 3.6 % (0.0-6.0); HEMATOCRIT 41 % (39-51); HEMOGLOBIN 13.8 g/dL (13.5-17.5); LYMPHOCYTES # (AUTO) 2.9 /CMM (0.8-4.8); LYMPHOCYTES % (AUTO) 27.5 % (20.0-44.0); MEAN CORPUSCULAR HGB CONC 34 g/dl (31.0-36.0); MEAN CORPUSCULAR VOLUME 91 fL (80-96); MONOCYTES # (AUTO) 0.7 /CMM (0.1-1.30); MONOCYTES % (AUTO) 6.4 % (2.0-12.0); NEUTROPHILS # (AUTO) 6.4 /CMM (1.8-8.9); NEUTROPHILS % (AUTO) 61.6 % (43.0-81.0); PLATELET COUNT (AUTO) 370 /CMM (150-450); RED BLOOD CELL COUNT(AUTO) 4.51 MIL/uL (4.5-6.0); WHITE BLOOD COUNT (AUTO) 10.5 K/uL (4.3-11.0)
[2019-08-20 05:31] LABS: ALBUMIN 3.4 g/dL (3.4-5.0); BILIRUBIN,TOTAL 0.2 mg/dL (0.2-1.0); CALCIUM, SERUM 9.4 mg/dL (8.5-10.1); CREATININE 2.2 mg/dL (0.6-1.3); POTASSIUM 4.2 mmol/L (3.5-5.1); TOTAL PROTEIN, SERUM 7.4 g/dL (6.4-8.2)
[2019-08-20 05:40] LABS: FREE T4 (FREE THYROXINE) 0.91 ng/dL (0.76-1.46); THYROID STIMULATING HORMONE 1.855 uIU/mL (0.358-3.74)
[2019-08-21 12:06] LABS: *IFE A/G RATIO 0.9 (0.7-1.7); *IFE ALBUMIN 3.1 g/dL (2.9-4.4); *IFE ALPHA-2-GLOBULIN 1.2 g/dL (0.4-1.0); *IFE BETA GLOBULIN 1.1 g/dL (0.7-1.3); *IFE M-SPIKE Not Observed g/dL (Not Observed); *IFEALPHA-1-GLOBULIN 0.3 g/dL (0.0-0.4); IMMUNOGLOBULIN A, SERUM 196 mg/dL (90-386); IMMUNOGLOBULIN G, SERUM 1039 mg/dL (603-1613); IMMUNOGLOBULIN M, SERUM 84 mg/dL (20-172)
== END 2019-08-19 23:59 | disposition home or self-care (01) ==
LOC: LAB 07:11
PROVIDERS: ATTEND Family Medicine
DX: E11.22 Type 2 diabetes mellitus with diabetic chronic kidney disease (principal); N18.9 Chronic kidney disease, unspecified; E55.9 Vitamin D deficiency, unspecified
CPT/HCPCS: 80053-TC; 80061-TC; 82232; 82306; 82784; 84155; 84156; 84165; 84166; 84439-TC; 84443-TC; 85025-TC; 86334; 86335

== ENCOUNTER 2019-12-30 06:38 | Outpatient (CLI) | payer BC ==
[2019-12-30 07:29] LABS: BASOPHILS # (AUTO) 0.1 /CMM (0.0-0.2); BASOPHILS % (AUTO) 1.3 % (0.0-2.0); EOSINOPHILS % (AUTO) 3.2 % (0.0-6.0); HEMATOCRIT 43 % (39-51); HEMOGLOBIN 14.1 g/dL (13.5-17.5); LYMPHOCYTES # (AUTO) 2.6 /CMM (0.8-4.8); LYMPHOCYTES % (AUTO) 27.5 % (20.0-44.0); MEAN CORPUSCULAR HGB CONC 33 g/dl (31.0-36.0); MEAN CORPUSCULAR VOLUME 93 fL (80-96); MONOCYTES # (AUTO) 0.6 /CMM (0.1-1.30); MONOCYTES % (AUTO) 6.6 % (2.0-12.0); NEUTROPHILS # (AUTO) 5.8 /CMM (1.8-8.9); NEUTROPHILS % (AUTO) 61.4 % (43.0-81.0); PLATELET COUNT (AUTO) 410 /CMM (150-450); RED BLOOD CELL COUNT(AUTO) 4.62 MIL/uL (4.5-6.0); WHITE BLOOD COUNT (AUTO) 9.4 K/uL (4.3-11.0)
[2019-12-30 08:22] LABS: ALBUMIN 3.4 g/dL (3.4-5.0); BILIRUBIN,TOTAL 0.2 mg/dL (0.2-1.0); CALCIUM, SERUM 8.7 mg/dL (8.5-10.1); CREATININE 2.5 mg/dL (0.6-1.3); POTASSIUM 4.2 mmol/L (3.5-5.1); TOTAL PROTEIN, SERUM 7.7 g/dL (6.4-8.2)
[2019-12-30 08:51] LABS: THYROID STIMULATING HORMONE 1.356 uIU/mL (0.358-3.74)
== END 2019-12-30 23:59 | disposition home or self-care (01) ==
LOC: LAB 06:38
PROVIDERS: ATTEND Family Medicine
DX: C64.9 Malignant neoplasm of unspecified kidney, except renal pelvis (principal); I12.9 Hypertensive chronic kidney disease with stage 1 through stage 4 chronic kidney disease, or unspecified chronic kidney disease; E11.22 Type 2 diabetes mellitus with diabetic chronic kidney disease; N18.9 Chronic kidney disease, unspecified; N52.1 Erectile dysfunction due to diseases classified elsewhere; M1A.00X0 Idiopathic chronic gout, unspecified site, without tophus (tophi); R89.4 Abnormal immunological findings in specimens from other organs, systems and tissues
CPT/HCPCS: 36415; 80053-TC; 80061-TC; 82306; 84439-TC; 84443-TC; 85025-TC

== ENCOUNTER 2020-03-23 06:25 | Outpatient (CLI) | payer BC ==
[~2020-03-23 06:25] MED LIST changes: +AMLO-212 PO; -AMLO5TAB9 PO
[2020-03-24 06:18] LABS: BASOPHILS # (AUTO) 0.1 /CMM (0.0-0.2); BASOPHILS % (AUTO) 1.2 % (0.0-2.0); EOSINOPHILS % (AUTO) 4.6 % (0.0-6.0); HEMATOCRIT 40 % (39-51); HEMOGLOBIN 13.1 g/dL (13.5-17.5); LYMPHOCYTES # (AUTO) 2.7 /CMM (0.8-4.8); LYMPHOCYTES % (AUTO) 27.2 % (20.0-44.0); MEAN CORPUSCULAR HGB CONC 33 g/dl (31.0-36.0); MEAN CORPUSCULAR VOLUME 92 fL (80-96); MONOCYTES # (AUTO) 0.7 /CMM (0.1-1.30); MONOCYTES % (AUTO) 6.7 % (2.0-12.0); NEUTROPHILS # (AUTO) 5.9 /CMM (1.8-8.9); NEUTROPHILS % (AUTO) 60.3 % (43.0-81.0); PLATELET COUNT (AUTO) 396 /CMM (150-450); RED BLOOD CELL COUNT(AUTO) 4.32 MIL/uL (4.5-6.0); WHITE BLOOD COUNT (AUTO) 9.8 K/uL (4.3-11.0)
[2020-03-24 06:29] LABS: BILIRUBIN,URINE NEGATIVE (NEGATIVE); BLOOD, URINE NEGATIVE Ery/uL (NEGATIVE); COLOR,URINE YELLOW (YELLOW); LEUKOCYTE ESTERASE ,URINE NEGATIVE (NEGATIVE); NITRITE, URINE NEGATIVE (NEGATIVE); PROTEIN,URINE 100 mg/dl (NEGATIVE); UGLUCOSE NEGATIVE (NEGATIVE); UROBILINOGEN,URINE 0.2 EU/dL (0.2)
[2020-03-24 06:41] LABS: BACTERIA,URINE None seen /HPF (None Seen); RBC,URINE NONE SEEN /HPF (0-2); SQUAMOUS EPITHELIAL CELL,UR 0-2 /HPF (None Seen); WBC,URINE NONE SEEN /HPF (0-3)
[2020-03-24 07:41] LABS: ALBUMIN 3.3 g/dL (3.4-5.0); BILIRUBIN,TOTAL 0.2 mg/dL (0.2-1.0); CALCIUM, SERUM 9.3 mg/dL (8.5-10.1); CREATININE 2.4 mg/dL (0.6-1.3); POTASSIUM 4.2 mmol/L (3.5-5.1); TOTAL PROTEIN, SERUM 7.3 g/dL (6.4-8.2)
== END 2020-03-23 23:59 | disposition home or self-care (01) ==
LOC: LAB 06:25
DX: C64.9 Malignant neoplasm of unspecified kidney, except renal pelvis (principal)
CPT/HCPCS: 36415; 80053-TC; 81001; 85025-TC

== ENCOUNTER 2020-04-28 23:05 | Emergency (ER) | payer OTHER, BC ==
[~2020-04-28] VITALS: Ht 180.3 cm; Wt 113.4 kg
[2020-04-28 23:09] VITALS: BP 119/68
== END 2020-04-28 23:27 | disposition home or self-care (01) ==
LOC: ER 23:09
DX: J02.9 Acute pharyngitis, unspecified (principal); Z20.828 Contact with and (suspected) exposure to other viral communicable diseases; Z90.5 Acquired absence of kidney; I10 Essential (primary) hypertension; E11.9 Type 2 diabetes mellitus without complications; Z79.84 Long term (current) use of oral hypoglycemic drugs; Z79.899 Other long term (current) drug therapy; Z91.013 Allergy to seafood
CPT/HCPCS: 87426; 99283; C9803; U0003

== ENCOUNTER 2020-05-20 01:49 | Emergency (ER) | payer BC, OTHER ==
[~2020-05-20] VITALS: Ht 172.7 cm; Wt 113.4 kg
[2020-05-20 02:01] VITALS: BP 132/68
== END 2020-05-20 04:11 | disposition home or self-care (01) ==
LOC: ER 01:50
DX: Z20.822 Contact with and (suspected) exposure to COVID-19 (principal); Z90.5 Acquired absence of kidney; E11.9 Type 2 diabetes mellitus without complications; I10 Essential (primary) hypertension; Z85.528 Personal history of other malignant neoplasm of kidney; Z91.013 Allergy to seafood; Z79.84 Long term (current) use of oral hypoglycemic drugs; Z79.899 Other long term (current) drug therapy
CPT/HCPCS: 99283; C9803; U0003

== ENCOUNTER 2020-05-27 01:45 | Emergency (ER) | payer OTHER ==
[~2020-05-27] VITALS: Ht 172.7 cm; Wt 113.4 kg
[2020-05-27 01:46] VITALS: BP 141/87
== END 2020-05-27 01:58 | disposition home or self-care (01) ==
LOC: ER 01:46
DX: Z20.822 Contact with and (suspected) exposure to COVID-19 (principal); Z85.528 Personal history of other malignant neoplasm of kidney; Z90.5 Acquired absence of kidney; E11.9 Type 2 diabetes mellitus without complications; Z79.84 Long term (current) use of oral hypoglycemic drugs; Z79.899 Other long term (current) drug therapy; I10 Essential (primary) hypertension
CPT/HCPCS: 99283; C9803; U0003

== ENCOUNTER 2020-06-08 05:32 | Emergency (ER) | payer OTHER ==
[~2020-06-08] VITALS: Ht 177.8 cm; Wt 113.4 kg
[2020-06-08 05:38] VITALS: BP 138/78
== END 2020-06-08 05:57 | disposition home or self-care (01) ==
LOC: ER 05:33
DX: Z20.822 Contact with and (suspected) exposure to COVID-19 (principal); I10 Essential (primary) hypertension; E11.9 Type 2 diabetes mellitus without complications; Z85.528 Personal history of other malignant neoplasm of kidney; Z90.5 Acquired absence of kidney; Z91.013 Allergy to seafood; Z79.84 Long term (current) use of oral hypoglycemic drugs; Z79.899 Other long term (current) drug therapy
CPT/HCPCS: 99283; C9803; U0003

== ENCOUNTER 2020-06-08 06:57 | Outpatient (CLI) | payer BC ==
[2020-06-09 05:19] LABS: BASOPHILS % (AUTO) 0.3 % (0.0-2.0); EOSINOPHILS % (AUTO) 4.5 % (0.0-6.0); HEMATOCRIT 39 % (39-51); HEMOGLOBIN 13.3 g/dL (13.5-17.5); LYMPHOCYTES # (AUTO) 2.2 /CMM (0.8-4.8); LYMPHOCYTES % (AUTO) 24.1 % (20.0-44.0); MEAN CORPUSCULAR HGB CONC 34 g/dl (31.0-36.0); MEAN CORPUSCULAR VOLUME 92 fL (80-96); MONOCYTES # (AUTO) 0.6 /CMM (0.1-1.30); MONOCYTES % (AUTO) 6.7 % (2.0-12.0); NEUTROPHILS # (AUTO) 5.9 /CMM (1.8-8.9); NEUTROPHILS % (AUTO) 64.4 % (43.0-81.0); PLATELET COUNT (AUTO) 398 /CMM (150-450); RED BLOOD CELL COUNT(AUTO) 4.27 MIL/uL (4.5-6.0); WHITE BLOOD COUNT (AUTO) 9.1 K/uL (4.3-11.0)
[2020-06-09 05:36] LABS: ALBUMIN 3.1 g/dL (3.4-5.0); BILIRUBIN,TOTAL 0.2 mg/dL (0.2-1.0); CREATININE 2.7 mg/dL (0.6-1.3); POTASSIUM 4.2 mmol/L (3.5-5.1); TOTAL PROTEIN, SERUM 7.2 g/dL (6.4-8.2)
[2020-06-09 05:44] LABS: THYROID STIMULATING HORMONE 1.213 uIU/mL (0.358-3.74)
[2020-06-09 07:09] LABS: COLOR,URINE YELLOW (YELLOW); PROTEIN,URINE 300 mg/dl (NEGATIVE)
[2020-06-09 07:10] LABS: BILIRUBIN,URINE NEGATIVE (NEGATIVE); LEUKOCYTE ESTERASE ,URINE NEGATIVE (NEGATIVE); NITRITE, URINE NEGATIVE (NEGATIVE); UGLUCOSE NEGATIVE (NEGATIVE); UROBILINOGEN,URINE 0.2 EU/dL (0.2)
[2020-06-09 10:25] LABS: RBC,URINE 0-2 /HPF (0-2)
[2020-06-09 10:26] LABS: BACTERIA,URINE None seen /HPF (None Seen); SQUAMOUS EPITHELIAL CELL,UR Rare /HPF (None Seen)
== END 2020-06-08 23:59 | disposition home or self-care (01) ==
LOC: LAB 06:57
PROVIDERS: ATTEND Family Medicine
DX: I10 Essential (primary) hypertension (principal); E11.21 Type 2 diabetes mellitus with diabetic nephropathy; E78.2 Mixed hyperlipidemia; N52.1 Erectile dysfunction due to diseases classified elsewhere; Z79.899 Other long term (current) drug therapy
CPT/HCPCS: 36415; 80053-TC; 80061-TC; 84439-TC; 84443-TC; 85025-TC

== ENCOUNTER 2020-07-12 05:52 | Outpatient (CLI) | payer BC ==
[2020-07-12 06:22] LABS: CALCIUM, SERUM 8.9 mg/dL (8.5-10.1); CREATININE 2.4 mg/dL (0.6-1.3); POTASSIUM 4.2 mmol/L (3.5-5.1)
== END 2020-07-12 23:59 | disposition home or self-care (01) ==
LOC: LAB 05:52
PROVIDERS: ATTEND Family Medicine
DX: E78.2 Mixed hyperlipidemia (principal); E11.21 Type 2 diabetes mellitus with diabetic nephropathy
CPT/HCPCS: 36415; 80048-TC

== ENCOUNTER 2020-09-05 00:08 | Emergency (ER) | payer BC, OTHER ==
[~2020-09-05] VITALS: Ht 177.8 cm; Wt 113.4 kg
[2020-09-05 00:08] VITALS: BP 119/68
== END 2020-09-05 00:40 | disposition home or self-care (01) ==
LOC: ER 00:12
DX: Z20.822 Contact with and (suspected) exposure to COVID-19 (principal); E11.9 Type 2 diabetes mellitus without complications; I10 Essential (primary) hypertension; Z90.5 Acquired absence of kidney; Z91.013 Allergy to seafood; Z85.528 Personal history of other malignant neoplasm of kidney; Z79.84 Long term (current) use of oral hypoglycemic drugs; Z79.899 Other long term (current) drug therapy
CPT/HCPCS: 99283; C9803; U0003

== ENCOUNTER 2020-09-29 06:09 | Outpatient (CLI) | payer BC ==
[2020-09-29 05:09] LABS: BASOPHILS # (AUTO) 0.1 /CMM (0.0-0.2); BASOPHILS % (AUTO) 1.4 % (0.0-2.0); EOSINOPHILS % (AUTO) 3.3 % (0.0-6.0); HEMATOCRIT 43 % (39-51); HEMOGLOBIN 14.4 g/dL (13.5-17.5); LYMPHOCYTES # (AUTO) 2.6 /CMM (0.8-4.8); LYMPHOCYTES % (AUTO) 24.3 % (20.0-44.0); MEAN CORPUSCULAR HGB CONC 33 g/dl (31.0-36.0); MEAN CORPUSCULAR VOLUME 92 fL (80-96); MONOCYTES # (AUTO) 0.7 /CMM (0.1-1.30); MONOCYTES % (AUTO) 6.4 % (2.0-12.0); NEUTROPHILS # (AUTO) 6.9 /CMM (1.8-8.9); NEUTROPHILS % (AUTO) 64.6 % (43.0-81.0); PLATELET COUNT (AUTO) 489 /CMM (150-450); RED BLOOD CELL COUNT(AUTO) 4.71 MIL/uL (4.5-6.0); WHITE BLOOD COUNT (AUTO) 10.7 K/uL (4.3-11.0)
[2020-09-29 05:21] LABS: ALBUMIN 2.8 g/dL (3.4-5.0); BILIRUBIN,TOTAL 0.2 mg/dL (0.2-1.0); CALCIUM, SERUM 8.9 mg/dL (8.5-10.1); CREATININE 2.7 mg/dL (0.6-1.3); POTASSIUM 4.3 mmol/L (3.5-5.1); TOTAL PROTEIN, SERUM 7.4 g/dL (6.4-8.2)
[2020-09-29 06:20] LABS: BILIRUBIN,URINE Negative (NEGATIVE); COLOR,URINE YELLOW (YELLOW); LEUKOCYTE ESTERASE ,URINE Negative (NEGATIVE); NITRITE, URINE Negative (NEGATIVE); PROTEIN,URINE >=300 mg/dl (NEGATIVE); UGLUCOSE Negative (NEGATIVE); UROBILINOGEN,URINE 0.2 EU/dL (0.2)
[2020-09-29 06:22] LABS: THYROID STIMULATING HORMONE 1.352 uIU/mL (0.358-3.74); URIC ACID 6.9 mg/dL (2.6-7.2)
== END 2020-09-29 23:59 | disposition home or self-care (01) ==
LOC: LAB 06:09
PROVIDERS: ATTEND Family Medicine
DX: C64.9 Malignant neoplasm of unspecified kidney, except renal pelvis (principal); I10 Essential (primary) hypertension; E55.9 Vitamin D deficiency, unspecified; M79.89 Other specified soft tissue disorders; R25.2 Cramp and spasm; Z79.899 Other long term (current) drug therapy
CPT/HCPCS: 36415; 80053-TC; 80061-TC; 82306; 84439-TC; 84443-TC; 84550-TC; 85025-TC

== ENCOUNTER 2020-11-09 06:44 | Outpatient (CLI) | payer BC ==
[2020-11-09 06:10] LABS: BASOPHILS # (AUTO) 0.1 K/uL (0.0-0.2); BASOPHILS % (AUTO) 1.2 % (0.0-2.0); EOSINOPHILS % (AUTO) 3.8 % (0.0-6.0); HEMATOCRIT 41 % (39-51); HEMOGLOBIN 13.3 g/dL (13.5-17.5); LYMPHOCYTES # (AUTO) 2.9 K/uL (0.8-4.8); LYMPHOCYTES % (AUTO) 24.3 % (20.0-44.0); MEAN CORPUSCULAR HGB CONC 33 g/dl (31.0-36.0); MEAN CORPUSCULAR VOLUME 93 fL (80-96); MONOCYTES # (AUTO) 0.9 K/uL (0.1-1.30); MONOCYTES % (AUTO) 7.1 % (2.0-12.0); NEUTROPHILS # (AUTO) 7.7 K/uL (1.8-8.9); NEUTROPHILS % (AUTO) 63.6 % (43.0-81.0); PLATELET COUNT (AUTO) 456 K/uL (150-450); RED BLOOD CELL COUNT(AUTO) 4.39 MIL/uL (4.5-6.0); WHITE BLOOD COUNT (AUTO) 12.1 K/uL (4.3-11.0)
[2020-11-09 06:46] LABS: ALBUMIN 2.8 g/dL (3.4-5.0); BILIRUBIN,TOTAL 0.2 mg/dL (0.2-1.0); CALCIUM, SERUM 8.3 mg/dL (8.5-10.1); CREATININE 2.7 mg/dL (0.6-1.3); POTASSIUM 4.1 mmol/L (3.5-5.1); TOTAL PROTEIN, SERUM 7.1 g/dL (6.4-8.2)
[2020-11-10 12:07] LABS: *IFE A/G RATIO 0.9 (0.7-1.7); *IFE ALBUMIN 2.9 g/dL (2.9-4.4); *IFE ALPHA-2-GLOBULIN 1.1 g/dL (0.4-1.0); *IFE GAMMA GLOBULIN 0.9 g/dL (0.4-1.8); *IFE M-SPIKE Not Observed g/dL (Not Observed); *IFEALPHA-1-GLOBULIN 0.3 g/dL (0.0-0.4); IMMUNOGLOBULIN A, SERUM 175 mg/dL (90-386); IMMUNOGLOBULIN G, SERUM 895 mg/dL (603-1613); IMMUNOGLOBULIN M, SERUM 95 mg/dL (20-172)
[2020-11-11 14:07] LABS: *IFEU ALPHA-2-GLOBULIN 7.5 % (.)
== END 2020-11-09 23:59 | disposition home or self-care (01) ==
LOC: LAB 06:44
PROVIDERS: ATTEND Internal Medicine Hematology & Oncology
DX: D64.9 Anemia, unspecified (principal); E78.5 Hyperlipidemia, unspecified
CPT/HCPCS: 36415; 80053-TC; 82232; 85025-TC; 86334; 86335

== ENCOUNTER 2020-11-10 10:30 | Emergency (ER) | payer BC ==
[~2020-11-10] VITALS: Ht 180.3 cm; Wt 108.9 kg
--- NOTE | 2020-11-10 10:38 | NUR ---
TO ER BED 10 FOR MD MACHUCA.
--- NOTE | 2020-11-10 10:40 | NUR ---
ASSUME PT CARE, BIB FOR A SYNCOPAL EVENT EARLIER TODAY. PT STATES HIS BLOOD SUGAR WAS LOW WHEN PARAMEDICS CAME IN AND WAS GIVEN D10. PT IS C/O R SIDED HEAD PAIN W/ NOTED HEMATOMA. 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 AAOX4 AND VERBALLY RESPONSIVE. AWAITING MD MACHUCA.
--- NOTE | 2020-11-10 10:43 | NUR ---
DR SALEEM AT BEDSIDE FOR EVAL.
--- NOTE | 2020-11-10 10:52 | NUR ---
RADIOLOGY AT BEDSIDE FOR R WRIST XRAY.
--- NOTE | 2020-11-10 10:55 | NUR ---
PT TO RADIOLOGY FOR HEAD AND C SPINE CT VIA [facility].
--- NOTE | 2020-11-10 11:10 | NUR ---
IV LINE STARTED BLOOD DRAWN AND SENT TO LAB.
[2020-11-10 11:14] LABS: BASOPHILS # (AUTO) 0.1 K/uL (0.0-0.2); BASOPHILS % (AUTO) 0.8 % (0.0-2.0); EOSINOPHILS % (AUTO) 0.6 % (0.0-6.0); HEMATOCRIT 41 % (39-51); HEMOGLOBIN 13.4 g/dL (13.5-17.5); LYMPHOCYTES # (AUTO) 1.2 K/uL (0.8-4.8); LYMPHOCYTES % (AUTO) 8.9 % (20.0-44.0); MEAN CORPUSCULAR HGB CONC 33 g/dl (31.0-36.0); MEAN CORPUSCULAR VOLUME 92 fL (80-96); MONOCYTES # (AUTO) 0.8 K/uL (0.1-1.30); MONOCYTES % (AUTO) 6.1 % (2.0-12.0); NEUTROPHILS # (AUTO) 11.2 K/uL (1.8-8.9); NEUTROPHILS % (AUTO) 83.6 % (43.0-81.0); PLATELET COUNT (AUTO) 440 K/uL (150-450); RED BLOOD CELL COUNT(AUTO) 4.43 MIL/uL (4.5-6.0); WHITE BLOOD COUNT (AUTO) 13.4 K/uL (4.3-11.0)
[2020-11-10 11:23] LABS: CREATININE 2.8 mg/dL (0.6-1.3); POTASSIUM 4.4 mmol/L (3.5-5.1)
[2020-11-10 11:31] LABS: ALBUMIN 2.7 g/dL (3.4-5.0); BILIRUBIN,TOTAL 0.1 mg/dL (0.2-1.0); TOTAL PROTEIN, SERUM 6.8 g/dL (6.4-8.2)
--- NOTE | 2020-11-10 11:40 | NUR ---
PAGED DR LAKHANI
[2020-11-10 12:19] VITALS: BP 155/87
--- NOTE | 2020-11-10 12:19 | NUR ---
Patient discharged to home in stable condition. Written and verbal after care instructions given. Patient verbalizes understanding of instruction.IV removed. Catheter intact and site benign. Pressure and 4x4 applied to site. No bleeding noted.
== END 2020-11-10 12:20 | disposition home or self-care (01) ==
LOC: ER 10:36
DX: S00.03XA Contusion of scalp, initial encounter (principal); E11.9 Type 2 diabetes mellitus without complications; R94.4 Abnormal results of kidney function studies; I10 Essential (primary) hypertension; Z90.5 Acquired absence of kidney; Z91.013 Allergy to seafood; Z79.84 Long term (current) use of oral hypoglycemic drugs; Z79.899 Other long term (current) drug therapy; X58.XXXA Exposure to other specified factors, initial encounter; Y93.89 Activity, other specified; Y92.89 Other specified places as the place of occurrence of the external cause; Y99.8 Other external cause status
CPT/HCPCS: 36415; 70450-TC; 72125-TC; 73110; 80048-TC; 80076-TC; 82962-TC; 85025-TC

== ENCOUNTER 2020-12-19 23:19 | Emergency (ER) | payer BC, OTHER ==
[~2020-12-19] VITALS: Ht 180.3 cm; Wt 108.9 kg
[2020-12-19 23:19] VITALS: BP 132/64
== END 2020-12-20 00:25 | disposition home or self-care (01) ==
LOC: ER 23:21
DX: B34.9 Viral infection, unspecified (principal); Z20.822 Contact with and (suspected) exposure to COVID-19; Z90.5 Acquired absence of kidney; E11.9 Type 2 diabetes mellitus without complications; I10 Essential (primary) hypertension; Z91.013 Allergy to seafood; Z79.84 Long term (current) use of oral hypoglycemic drugs; Z79.899 Other long term (current) drug therapy
CPT/HCPCS: 87426; 99283; C9803; U0003

== ENCOUNTER 2021-01-03 07:53 | Outpatient (CLI) | payer BC ==
[2021-01-03 08:39] LABS: BASOPHILS # (AUTO) 0.1 K/uL (0.0-0.2); BASOPHILS % (AUTO) 1.3 % (0.0-2.0); EOSINOPHILS % (AUTO) 3.4 % (0.0-6.0); HEMATOCRIT 40 % (39-51); HEMOGLOBIN 13.5 g/dL (13.5-17.5); LYMPHOCYTES # (AUTO) 2.5 K/uL (0.8-4.8); LYMPHOCYTES % (AUTO) 25.9 % (20.0-44.0); MEAN CORPUSCULAR HGB CONC 34 g/dl (31.0-36.0); MEAN CORPUSCULAR VOLUME 93 fL (80-96); MONOCYTES # (AUTO) 0.5 K/uL (0.1-1.30); MONOCYTES % (AUTO) 5.5 % (2.0-12.0); NEUTROPHILS # (AUTO) 6.1 K/uL (1.8-8.9); NEUTROPHILS % (AUTO) 63.9 % (43.0-81.0); PLATELET COUNT (AUTO) 443 K/uL (150-450); RED BLOOD CELL COUNT(AUTO) 4.36 MIL/uL (4.5-6.0); WHITE BLOOD COUNT (AUTO) 9.5 K/uL (4.3-11.0)
[2021-01-03 08:47] LABS: BILIRUBIN,URINE NEGATIVE (NEGATIVE); LEUKOCYTE ESTERASE ,URINE NEGATIVE (NEGATIVE); NITRITE, URINE NEGATIVE (NEGATIVE); PROTEIN,URINE >=300 mg/dl (NEGATIVE); UGLUCOSE NEGATIVE (NEGATIVE); UROBILINOGEN,URINE 0.2 EU/dL (0.2)
[2021-01-03 08:48] LABS: COLOR,URINE STRAW (YELLOW)
[2021-01-03 09:29] LABS: BILIRUBIN,TOTAL 0.2 mg/dL (0.2-1.0); CALCIUM, SERUM 8.7 mg/dL (8.5-10.1); POTASSIUM 4.2 mmol/L (3.5-5.1); TOTAL PROTEIN, SERUM 7.3 g/dL (6.4-8.2)
[2021-01-03 10:06] LABS: THYROID STIMULATING HORMONE 1.287 uIU/mL (0.358-3.74)
[2021-01-03 11:06] LABS: BACTERIA,URINE None seen /HPF (None Seen); WBC,URINE NONE SEEN /HPF (0-3)
== END 2021-01-03 23:59 | disposition home or self-care (01) ==
LOC: CT 07:53
PROVIDERS: ATTEND Family Medicine
DX: C64.9 Malignant neoplasm of unspecified kidney, except renal pelvis (principal); K80.20 Calculus of gallbladder without cholecystitis without obstruction; M47.815 Spondylosis without myelopathy or radiculopathy, thoracolumbar region
CPT/HCPCS: 36415; 71250-TC; 80053-TC; 80061-TC; 81001; 82306; 84439-TC; 84443-TC; 85025-TC

== ENCOUNTER 2021-01-31 07:49 | Outpatient (CLI) | payer BC ==
[2021-02-01 03:41] LABS: BASOPHILS # (AUTO) 0.1 K/uL (0.0-0.2); BASOPHILS % (AUTO) 1.3 % (0.0-2.0); EOSINOPHILS % (AUTO) 4.5 % (0.0-6.0); HEMATOCRIT 40 % (39-51); HEMOGLOBIN 13.3 g/dL (13.5-17.5); LYMPHOCYTES # (AUTO) 2.9 K/uL (0.8-4.8); MEAN CORPUSCULAR HGB CONC 33 g/dl (31.0-36.0); MEAN CORPUSCULAR VOLUME 92 fL (80-96); MONOCYTES # (AUTO) 0.8 K/uL (0.1-1.30); MONOCYTES % (AUTO) 7.9 % (2.0-12.0); NEUTROPHILS % (AUTO) 58.3 % (43.0-81.0); PLATELET COUNT (AUTO) 410 K/uL (150-450); RED BLOOD CELL COUNT(AUTO) 4.36 MIL/uL (4.5-6.0); WHITE BLOOD COUNT (AUTO) 10.2 K/uL (4.3-11.0)
[2021-02-01 03:43] LABS: BILIRUBIN,URINE NEGATIVE (NEGATIVE); COLOR,URINE YELLOW (YELLOW); LEUKOCYTE ESTERASE ,URINE NEGATIVE (NEGATIVE); NITRITE, URINE NEGATIVE (NEGATIVE); PROTEIN,URINE >=300 mg/dl (NEGATIVE); UGLUCOSE NEGATIVE (NEGATIVE); UROBILINOGEN,URINE 0.2 EU/dL (0.2)
[2021-02-01 04:03] LABS: BACTERIA,URINE Few /HPF (None Seen); SQUAMOUS EPITHELIAL CELL,UR Rare /HPF (None Seen)
[2021-02-01 04:04] LABS: ALBUMIN 2.8 g/dL (3.4-5.0); BILIRUBIN,TOTAL 0.2 mg/dL (0.2-1.0); CREATININE 3.2 mg/dL (0.6-1.3); POTASSIUM 4.6 mmol/L (3.5-5.1); TOTAL PROTEIN, SERUM 6.9 g/dL (6.4-8.2)
[2021-02-02 14:07] LABS: *IFEU ALPHA-2-GLOBULIN 7.3 % (.)
== END 2021-01-31 23:59 | disposition home or self-care (01) ==
LOC: RAD 07:49
PROVIDERS: ATTEND Family Medicine
DX: E11.22 Type 2 diabetes mellitus with diabetic chronic kidney disease (principal); R31.9 Hematuria, unspecified; R07.81 Pleurodynia; M19.011 Primary osteoarthritis, right shoulder; M19.012 Primary osteoarthritis, left shoulder; M46.04 Spinal enthesopathy, thoracic region
CPT/HCPCS: 36415; 71100-TC; 80053-TC; 81001; 82232; 82378; 82784; 84156; 84166; 85025-TC; 86334; 86335

== ENCOUNTER 2021-02-14 09:48 | Outpatient (CLI) | payer BC ==
[2021-02-15 22:42] LABS: OCCULT BLOOD STOOL NEGATIVE (NEGATIVE)
[2021-02-16 22:28] LABS: OCCULT BLOOD STOOL NEGATIVE (NEGATIVE)
== END 2021-02-14 23:59 | disposition home or self-care (01) ==
LOC: LAB 09:48
PROVIDERS: ATTEND Internal Medicine Hematology & Oncology
DX: R97.0 Elevated carcinoembryonic antigen [CEA] (principal)
CPT/HCPCS: 82272-TC

== ENCOUNTER 2021-04-03 00:33 | Emergency (ER) | payer BC, OTHER ==
[~2021-04-03] VITALS: Ht 180.3 cm; Wt 113.4 kg
[2021-04-03 00:35] VITALS: BP 141/78
--- NOTE | 2021-04-03 01:19 | NUR ---
Patient discharged to home in stable condition. Written and verbal after care instructions given. Patient verbalizes understanding of instruction. Pt ambulatory with a steady gait
== END 2021-04-03 01:22 | disposition home or self-care (01) ==
LOC: ER 00:37
DX: Z20.822 Contact with and (suspected) exposure to COVID-19 (principal); E11.9 Type 2 diabetes mellitus without complications; Z79.84 Long term (current) use of oral hypoglycemic drugs; Z91.013 Allergy to seafood; Z90.5 Acquired absence of kidney; Z85.528 Personal history of other malignant neoplasm of kidney; I10 Essential (primary) hypertension; Z79.899 Other long term (current) drug therapy
CPT/HCPCS: 87426; 99283; C9803; U0003

== ENCOUNTER 2021-05-16 05:24 | Emergency (ER) | payer OTHER ==
[~2021-05-16] VITALS: Ht 175.3 cm; Wt 81.6 kg
[2021-05-16 05:27] VITALS: BP 135/65
== END 2021-05-16 05:51 | disposition home or self-care (01) ==
LOC: ER 05:27
DX: R52 Pain, unspecified (principal); Z20.822 Contact with and (suspected) exposure to COVID-19; I10 Essential (primary) hypertension; E11.9 Type 2 diabetes mellitus without complications; Z90.5 Acquired absence of kidney; Z91.013 Allergy to seafood; Z85.528 Personal history of other malignant neoplasm of kidney; Z79.84 Long term (current) use of oral hypoglycemic drugs; Z79.899 Other long term (current) drug therapy
CPT/HCPCS: C9803; U0003

== ENCOUNTER 2021-05-23 06:38 | Outpatient (CLI) | payer BC ==
[2021-05-23 07:53] LABS: BASOPHILS # (AUTO) 0.1 K/uL (0.0-0.2); BASOPHILS % (AUTO) 1.3 % (0.0-2.0); HEMATOCRIT 38 % (39-51); HEMOGLOBIN 12.8 g/dL (13.5-17.5); LYMPHOCYTES # (AUTO) 1.9 K/uL (0.8-4.8); LYMPHOCYTES % (AUTO) 17.8 % (20.0-44.0); MEAN CORPUSCULAR HGB CONC 33 g/dl (31.0-36.0); MEAN CORPUSCULAR VOLUME 94 fL (80-96); MONOCYTES # (AUTO) 0.7 K/uL (0.1-1.30); NEUTROPHILS # (AUTO) 7.8 K/uL (1.8-8.9); NEUTROPHILS % (AUTO) 71.9 % (43.0-81.0); PLATELET COUNT (AUTO) 457 K/uL (150-450); RED BLOOD CELL COUNT(AUTO) 4.09 MIL/uL (4.5-6.0); WHITE BLOOD COUNT (AUTO) 10.9 K/uL (4.3-11.0)
[2021-05-23 08:38] LABS: ALBUMIN 2.6 g/dL (3.4-5.0); BILIRUBIN,TOTAL 0.1 mg/dL (0.2-1.0); CREATININE 4.1 mg/dL (0.6-1.3); POTASSIUM 4.5 mmol/L (3.5-5.1); TOTAL PROTEIN, SERUM 7.1 g/dL (6.4-8.2)
[2021-05-23 08:43] LABS: THYROID STIMULATING HORMONE 2.115 uIU/mL (0.358-3.74)
== END 2021-05-23 23:59 | disposition home or self-care (01) ==
LOC: LAB 06:38
PROVIDERS: ATTEND Internal Medicine Hematology & Oncology
DX: D64.9 Anemia, unspecified (principal); E78.5 Hyperlipidemia, unspecified
CPT/HCPCS: 36415; 80053-TC; 82232; 82306; 84439-TC; 84443-TC; 85025-TC

== ENCOUNTER 2021-06-08 06:11 | Outpatient (CLI) | payer BC ==
[2021-06-08 08:20] LABS: IRON, SERUM 80 ug/dl (50-175); TOTAL IRON BINDING CAPACITY 359 ug/dl (250-450)
[2021-06-08 08:37] LABS: FERRITIN 151 ng/mL (8-388)
[2021-06-08 21:51] LABS: OCCULT BLOOD STOOL NEGATIVE (NEGATIVE)
== END 2021-06-08 23:59 | disposition home or self-care (01) ==
LOC: LAB 06:11
PROVIDERS: ATTEND Internal Medicine Hematology & Oncology
DX: D64.9 Anemia, unspecified (principal); D75.839 Thrombocytosis, unspecified; R97.0 Elevated carcinoembryonic antigen [CEA]
CPT/HCPCS: 36415; 82272-TC; 82728-TC; 83540-TC

== ENCOUNTER 2021-06-26 08:40 | Outpatient (CLI) | payer BC | END 2021-06-26 23:59 | disposition home or self-care (01) | LOC: LAB 08:40 | PROVIDERS: ATTEND Internal Medicine Hematology & Oncology | DX: D64.9 Anemia, unspecified (principal); D75.839 Thrombocytosis, unspecified; R97.0 Elevated carcinoembryonic antigen [CEA] | CPT/HCPCS: 36415 ==